=== PATIENT | female | born 1985 | race Caucasian/White ===

== ENCOUNTER 2016-07-16 07:30 | Inpatient (IN) ==
[2016-08-16] MEDS ORDERED: CITRIC ACID/SODIUM CITRATE 30 ML UDCUP PO ONE (06:08)
[2016-08-16] MEDS ORDERED: FAMOTIDINE 20 MG/2 ML VIAL IV ONE (06:08)
[2016-08-16 06:29] LABS: Basophils % 0.3 % (0.0-0.8); Eosinophils % 0.3 % (0.00-10.9); Hematocrit 34.8 VOL% (35.7-47.0); Hemoglobin 11.9 GM/DL (12.0-16.0); Immature Granulocytes % 0.8 %; Immature Granulocytes Absolute 0.05 #; Lymphocytes # 1.7 10*3/uL (1.4-4.0); Lymphocytes % 26.6 % (21.3-54.2); Mean Corpuscular HGB Conc 34.2 GM/DL (32-36); Mean Corpuscular Hemoglobin 32 PG (27-34); Mean Corpuscular Volume 92.8 FL (87-102); Monocytes # 0.4 10*3/uL (0.11-0.8); Monocytes % 6.4 % (1.7-12.7); Neutrophils # 4.2 10*3/uL (1.4-7.4); Neutrophils % 65.6 % (38.7-73.9); Platelet Count 229 T/CUMM (130-400); Red Blood Count 3.75 MC/CUMM (3.8-5.5); Red Cell Distribution Width 13.3 % (9.3-17.3); White Blood Count 6.4 T/CUMM (4-12)
[2016-08-16] MEDS: LACTATED RINGERS 1,000 ML IV SCH ×2 (06:31→15:50)
[2016-08-16 07:01] LABS: Alanine Aminotransferase 17 U/L (13-56); Albumin 2.6 G/DL (3.4-5.0); Alkaline Phosphatase 143 U/L (45-117); Aspartate Amino Transferase 14 U/L (0-37); Bilirubin,Total < 0.39 MG/DL (0.2-1.0); Blood Urea Nitrogen 10 MG/DL (7-18); Calcium 8.7 MG/DL (8.5-10.1); Glucose 74 MG/DL (74-106); Osmolality,Calculated 274.5 MOS/KG (273-304); Potassium 3.9 MMOL/L (3.5-5.1); Sodium 139 MMOL/L (136-145); Total Protein 6.1 G/DL (6.4-8.3)
[2016-08-16] MEDS ORDERED: OXYTOCIN/LR 20 UNIT/1,000 ML BAG IV ONE ×2 (07:04→09:45)
[2016-08-16] MEDS ORDERED: LACTATED RINGERS 1,000 ML IV ONE (07:22)
[2016-08-16] MEDS ORDERED: PHENYLEPHRINE 1 MG/10 ML SYRINGE IV ONE (07:40)
[2016-08-16] MEDS ORDERED: ONDANSETRON 4 MG/2 ML VIAL ONE (07:40)
[2016-08-16] MEDS ORDERED: METHYLERGONOVINE 0.2 MG/1 ML AMP ONE (08:43)
[2016-08-16 09:01] LABS: Apearance,Urine CLEAR (Clear); Bilirubin,Urine Negative (Negative); Blood, Urine Negative (Negative); Glucose,Urine (UA) Negative (Negative); Ketones,Urine Negative (Negative); Mucus,Urine Occasional /LPF (Occasional); Nitrite,Urine Negative (Negative); Protein,Urine Negative; Urine Color Straw (Yellow); Urine Specific Gravity 1.008 (1.001-1.035); Urine Urobilinogen < 2.0 EU/DL (0.2-1.0); WBC,Urine <1 /HPF (0-6)
[2016-08-16] MEDS ORDERED: TISSUE ADHESIVE 1 EACH APPLICATOR TOP ONE ×2 (09:14→09:50)
[2016-08-16] MEDS ORDERED: MORPHINE 10 MG/10 ML VIAL ONE (10:06)
[2016-08-16] MEDS ORDERED: fentaNYL 100 MCG/2 ML VIAL ONE (10:07)
--- NOTE | 2016-08-16 15:13 | Anesthesia Post-Op ---
Anesthesia Post OP - Post Ansesthetic Evaluation Patient seen in post op: Yes Resp: within normal limits CV: within normal limits Mental: within normal limits Temp: within normal limits [id number]: within normal limits Nausea and Vomiting: within normal limits Pain: within normal limits
[2016-08-16] MEDS ORDERED: SIMETHICONE CHEW 80 MG TABLET PO PRN (21:00)
[2016-08-16] MEDS: oxyCODONE/ACETAMINOPHEN 5-325 MG TABLET PO PRN (22:00)
[2016-08-17] MEDS: IBUPROFEN 800 MG TABLET PO PRN ×3 (00:30→20:05)
[2016-08-17] MEDS: oxyCODONE/ACETAMINOPHEN 5-325 MG TABLET PO PRN ×4 (02:00→22:20)
[2016-08-17 06:06] LABS: Basophils % 0.1 % (0.0-0.8); Eosinophils # 0.1 10*3/uL (0.0-0.87); Eosinophils % 0.4 % (0.00-10.9); Hematocrit 29.6 VOL% (35.7-47.0); Hemoglobin 9.9 GM/DL (12.0-16.0); Immature Granulocytes % 0.5 %; Immature Granulocytes Absolute 0.07 #; Lymphocytes # 1.1 10*3/uL (1.4-4.0); Lymphocytes % 8.4 % (21.3-54.2); Mean Corpuscular HGB Conc 33.4 GM/DL (32-36); Mean Corpuscular Hemoglobin 31 PG (27-34); Mean Platelet Volume 12.2 FL (9.6-12.0); Monocytes # 0.6 10*3/uL (0.11-0.8); Neutrophils # 11.8 10*3/uL (1.4-7.4); Neutrophils % 86.6 % (38.7-73.9); Platelet Count 182 T/CUMM (130-400); Red Blood Count 3.15 MC/CUMM (3.8-5.5); Red Cell Distribution Width 13.7 % (9.3-17.3); White Blood Count 13.6 T/CUMM (4-12)
[2016-08-17] MEDS ORDERED: MAGNESIUM HYDROXIDE SUSP 30 ML UDCUP PO PRN (09:00)
[2016-08-17] MEDS ORDERED: DOCUSATE SODIUM 100 MG CAPSULE PO PRN (09:00)
[2016-08-17] MEDS: DOCUSATE SODIUM 100 MG CAPSULE PO SCH ×2 (10:06→21:22)
--- NOTE | 2016-08-17 11:23 | Pathology Report from [facility] ---
[facility] ACCESSION # : [id number] PATIENT NAME : Dino Shah ORDERING DR : MADDIE ORTIZ CLINICAL HX: 39 wks gestation, previous C/S x 2, desires sterilization POST-OP DX: Same SPECIMEN INFO: Placenta GROSS DESCRIPTION: Received fresh labeled DINO SHAH is a 626 gm placenta measuring 19.0 x 18.0 x 3.3 cm. The membranes are pink nogueira and translucent. The umbilical cord measures 38.0 cm, contain three vessels and is inserted near the placenta margin. The surface is blue stapleton and intact. The maternal surface displays hemorrhagic moderately disrupted cotyledons with no abnormalities seen upon sectioning. Sections submitted A- membranes and cord, B- and maternal surfaces. DIAGNOSIS FOR DINO SHAH: PLACENTA: Trivascular umbilical cord. Unremarkable membranes. Third trimester placenta with dystrophic calcification and intervillous fibrin deposition. COLLECTED DATE: 08/16/2016 [facility] REPORT DATE: 08/17/2016 ELECTRONICALLY SIGNED BY: Elizabeth Contreras III, M.D. 08/17/2016 - 9:51:04 CHRISTIANO
[2016-08-18] MEDS ORDERED: BISACODYL 10 MG SUPP RECTAL PRN (01:02)
[2016-08-18] MEDS: oxyCODONE/ACETAMINOPHEN 5-325 MG TABLET PO PRN ×2 (02:35→11:17)
[2016-08-18] MEDS ORDERED: PROMETHAZINE 25 MG/1 ML VIAL IM PRN (05:50)
[2016-08-18] MEDS: DOCUSATE SODIUM 100 MG CAPSULE PO SCH (09:28)
--- NOTE | 2016-08-18 12:30 | OB/GYN Progress Note ---
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 This morning's blood pressures readings have been borderline with no prior history of -induced hypertension or blood pressure problems. However she states her pressure was starting to go up during the last week of . She denies any symptoms and has no signs of -induced hypertension. Exam CAN WORKER - Constitutional Vitals: Vital Signs Temp Pulse Resp BP Pulse Ox 08/18/16 08:00 97.0 F L 105 H 17 164/91 98 08/18/16 04:00 97.1 F L 104 H 20 148/96 96 08/17/16 23:25 97.5 F L 100 H 20 144/91 96 08/17/16 20:00 97.2 F L 99 H 20 140/98 99 08/17/16 16:00 97.9 F 94 H 20 165/99 99 General appearance: no acute distress - Head Head exam: Present: normal inspection - Eye Pupils: Present: SULLY - ENT ENT exam: Present: normal exam - Neck Neck exam: Present: normal inspection - Respiratory Respiratory exam: Present: clear to auscultation bilaterally. Absent: accessory muscle use - Cardiovascular Cardiovascular exam: Present: regular rate and rhythm - GI/Abdominal GI/Abdominal exam: Present: normal bowel sounds, other (Moderate amount of serous appearing drainage from her JULIANA drain, will send home with patient). Absent: guarding, tenderness - Extremities Exam Extremities exam: Present: edema - Neurological Exam Neurological exam: Present: alert, oriented X3, reflexes normal - Psychiatric Psychiatric exam: Present: normal affect, normal mood - Skin Skin exam: Present: normal color, warm, dry Results - Labs CBC & BMP: 08/17/16 05:34 08/16/16 06:23
[2016-08-18 13:22] VITALS: BP 130/101
--- NOTE | 2016-09-08 23:54 | History and Physical Update ---
History and Physical Update - History and Physical H&P was reviewed, the patient examined and there: are no changes in the patients condition since last H&P was completed. - Dictation Physical: refer to scanned H&P - Physical Exam Mental Status: alert and oriented Heart: regular rate and rhythm Lung: clear to auscultation Abdomen: within normal limits Vitals: within normal limits History and Physical Changes: 39 wks admitted for repeat C/S, BTL. No complications.
--- NOTE | 2016-09-08 23:58 | Operative Note ---
Date of procedure: 08/16/16 Pre-op diagnosis: 39wks;previous C/S; desires sterilization Post-op diagnosis: same Procedure: Repeat low transverse section; Intraoperative tubal ligation with application of Filshie clips After informed consent was obtained the patient was taken to the labor and delivery OR where she was placed in supine position with left lateral tilt after administration of the subarachnoid block by members of the anesthesia department. The patient was then sterilely prepped and draped in the usual customary fashion. A Willis catheter was placed to bedside drainage. After assuring adequacy of the subarachnoid block a low transverse skin incision was made with excision of the old cicatrix. Fibrosis of the tissues was encountered consistent with patient's previous . Incision was carried through the subcutaneous tissue and Lillian's fascia to the anterior rectus fascia. Rectus muscles are bifurcated in the midline. Peritoneum was carefully entered. A bladder flap was created. The bladder blade was place in the bladder flap. A low transverse myotomy incision was then performed. Uterine cavity was entered with careful dissection. The infant was found in the cephalic presentation and delivered by the usual cephalic delivery technique without difficulty. The baby was bulb suctioned on the operative field. The cord was doubly clamped and cut. The infant was handed to personnel in attendance. Cord blood was collected. The placenta was manually extracted and sent to pathology for evaluation. The uterus is brought out of the abdominal cavity onto the abdominal wall. Uterine cavity was gently curetted with a moistened lap sponge. The cervix was noted to be dilated. Myotomy incision was repaired with a running interlocking stitch of 0 chromic suture from left to right and from right to left. After assuring adequate myotomy closure the adnexa were inspected and found to be without evidence pathology. The abdominal gutters were irrigated with normal saline. The fallopian tubes and ovaries were inspected and found to be without evidence pathology. A Filshie clip was placed in the midportion of the fallopian tube on the left side with care to include the entire diameter of the tube within the boundary of the clip. A similar procedure was repeated on the patient's right side. Uterus was carefully replaced into the abdominal cavity. The myometrium incision was again inspected. It was found to be hemostatic. Peritoneum was closed with a running stitch of 3-0 Vicryl. Rectus muscles were noted be hemostatic. The fascia was closed in running fashion from left right and from right to left with 0 Vicryl suture. The sutures tied securely at the midline. Adequate fascial closure was assured. Lillian's fascia was reapproximated with a running stitch of 3-0 Vicryl. Skin edges were reapproximated with surgical surgical steel taisha. The wound was sterilely cleansed and dressed in the usual and customary fashion. Patient tolerated the procedure well and was transferred to recovery in stable condition. Implants: Bilateral Filshie clips Anesthesia: spinal Surgeon / Physician: Asha Pollock Estimated blood loss: other (500cc) Specimens: other (cord blood to lab, placenta to path) Condition: stable Disposition: PACU Results - Labs CBC & BMP: 08/17/16 05:34 08/16/16 06:23 Discharge Plan - Discharge Data Disposition: Disch To Home/Self Care - Discharge Medications No Action No122/Iron/Folic Acid [ Multi Tablet] 1 each PO DAILY - Follow Up or Referral Follow Up: Asha Pollock DO [Physician] - (Keep appointment as scheduled ) - Forms/Instructions Instructions: Section (DC), Dominik-Montaño Drain Care (DC), Surgical Site Infections (GEN)
== END 2016-08-18 14:25 | disposition home or self-care (01) | DRG 766 ==
LOC: N.LD 08-16 05:55 → N.OB 08-16 13:37
PROVIDERS: ADMIT Obstetrics & Gynecology; ATTEND Obstetrics & Gynecology